=== PATIENT | female | born 1970 | race Caucasian/White ===

== ENCOUNTER 2016-07-16 08:58 | Emergency (ER) | payer BC ==
[2016-07-16 09:32] VITALS: BP 135/84
--- NOTE | 2016-07-16 10:10 | UC ---
Elbow Pain - HPI Summary HPI Summary: 1 WEEK OF BILATERAL ELBOW PAIN, RIGHT>LEFT. 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 PAIN IS KEEPING HER UP AT NIGHT. SHE CAN NOT GET COMFORTABLE. 1200MG IBUPROFEN AND 1000MF NAPROXEN NOT HELPING. ICE NOT HELPING. DENIES ANY TRAUMA OR INJURY. - History of Current Complaint Chief Complaint: UCLowerExtremity Stated Complaint: ELBOW PAIN Time Seen by Provider: 07/16/16 10:03 Hx Obtained From: Patient Hx Last Menstrual Period: 09/23/13 Onset/Duration: Atraumatic Severity Initially: Moderate Severity Currently: Moderate Pain Intensity: 10 - STATES 10/10 RIGHT ELBOW PAIN BUT SITTING IN EXAM ROOM IN NO ACUTE DISTRESS Pain Scale Used: 0-10 Numeric Location Of Pain: Is Discrete @ - BILATERAL ELBOWS R>L Character: Aching Aggravating Factor(s): Movement Alleviating Factor(s): Nothing Associated Signs And Symptoms: Negative: Swelling, Redness, Bruising, Fever, Weakness, Numbness/Tingling - Allergies/Home Medications Allergies/Adverse Reactions: Allergies Allergy/AdvReac Type Severity Reaction Status Date / Time ENVIRONMENTAL Allergy Unknown Uncoded 07/16/16 09:18 Reaction Details Home Medications: Home Medications Amphetamine-Dextroamphetamine [Adderall 10 mg-] 20 mg PO DAILY 07/16/16 [ History Confirmed 07/16/16] Ibuprofen [Ibuprofen 200 MG] 1,200 mg PO PRN 07/16/16 [History] Montelukast Sodium TAB* [Singulair 5 mg TAB*] 5 mg PO DAILY 07/16/16 [History Confirmed 07/16/16] Multiple Vitamins W/ Minerals [Multivitamin Adult] 1 tab PO DAILY 07/16/16 [ History Confirmed 07/16/16] Naproxen [Naproxen 500 MG TABS] 1,000 mg PO PRN 07/16/16 [History] PMH/Surg Hx/FS Hx/Imm Hx - Additional Past Medical History Additional PMH: Chronic Fatigue; Osteoarthritis; Fibromylagia; CHETAN Endocrine History Of: Reports: Thyroid Disease - Hypothyroidism, Hypothyroidism Denies: Diabetes Cardiovascular History Of: Reports: Deep Vein Thrombosis Denies: Hypertension, Pacemaker/ICD GI/ History Of: Reports: Gastroesophageal Reflux Denies: Renal Disease Psychological History Of: Reports: Anxiety, Depression Cancer History Of: Denies: Breast Cancer - Surgical History Surgical History: Yes Surgery Procedure, Year, and Place: 1995 TUBAL LIGATION, [facility]. 1994 RIGHT BREAST BIOPSY, [place], [place]. Tonsillectomy/Adenoidectomy age 5. CYST REMOVED FRON OUTER EAR AGE 5. Partial Hysterectomy - Family History Known Family History: Positive: Hypertension - Social History Alcohol Use: None Substance Use Type: None Smoking Status (MU): Heavy Every Day Tobacco Smoker Type: Cigarettes Amount Used/How Often: 1/2 ppd Length of Time of Smoking/Using Tobacco: 20 years Have You Smoked in the Last Year: Yes - Immunization History Most Recent Influenza Vaccination: Not Up to date Review of Systems Constitutional: Negative Skin: Negative Respiratory: Negative Cardiovascular: Negative Gastrointestinal: Negative Musculoskeletal: Arthralgia All Other Systems Reviewed And Are Negative: Yes Physical Exam Triage Information Reviewed: Yes Appearance: Well-Appearing, No Pain Distress, Well-Nourished Vital Signs: Initial Vital Signs Temp 99.2 F 07/16/16 09:26 Pulse 78 07/16/16 09:26 Resp 16 07/16/16 09:26 BP 135/84 07/16/16 09:26 Pulse Ox 98 07/16/16 09:26 Vital Signs Reviewed: Yes Eyes: Positive: Conjunctiva Clear ENT: Positive: Hearing grossly normal Neck: Positive: Supple Respiratory: Positive: No respiratory distress, No accessory muscle use Cardiovascular: Positive: Pulses Normal Abdomen Description: Positive: Soft Musculoskeletal: Positive: ROM Intact, No Edema, Other: - TTP BILATERAL LATERAL EPICONDYLES, RIGHT>LEFT Neurological: Positive: Alert Psychological: Positive: Age Appropriate Behavior Skin: Negative: rashes Elbow Pain Course/Dx - Course Course Of Treatment: SLING, NSAIDS, COUNTERFORCE BRACE, REST. FOLLOW-UP ORTHO IF NEEDED. - Differential Dx/Diagnosis Differential Diagnosis/HQI/PQRI: Bursitis, Fracture (Closed), Infection, Sprain , Strain Provider Diagnoses: LATERAL EPICONDYLITIS Discharge - Discharge Plan Condition: Stable Disposition: HOME Prescriptions: Hydrocodone-Acetaminophen [Lorcet 5-325 mg] 1 tab PO QID PRN #15 tab MDD 4 PRN Reason: Pain Patient Education Materials: Tennis Elbow Exercises (GEN), Tennis Elbow (ED) Forms: *Work Release Referrals: Moon Kiser MD [Primary Care Provider] - If Needed Mickey Vilchis MD [Medical Doctor] - If Needed Additional Instructions: THIS IS AN OVERUSE REPETITIVE MOTION INJURY AND CAN BE A CHRONIC CONDITION. TRY TO REST YOUR ARM MUCH POSSIBLE AND AVOID REPETITIVE MOTION AND ANY ACTIVITIES THAT CAUSE DISCOMFORT. TRY USING A COUNTERFORCE BRACE TO HELP WITH SYMPTOMS. YOU CAN GET THIS AT MOST PHARMACIES. THE SLING IS JUST FOR YOU TO USE NEEDED FOR COMFORT. TAKE IBUPROFEN OR NAPROXEN, DO NOT EXCEED DOSING STATED BELOW. IBUPROFEN MAX DOSE: 600MG (3 TABS) EVERY 6 HRS OR 800MG (4 TABS) EVERY 8 HRS OR NAPROXEN MAX DOSE: 440MG (2 TABS) EVERY 12 HRS (OTC) or 500MG EVERY 12 HOURS ( PRESCRIPTION) IF YOUR SYMPTOMS DO NOT IMPROVE WITH CONSERVATIVE MEASURES YOU MAY BENEFIT FROM AN INJECTION. CALL ORTHO IF NEEDED.
== END 2016-07-16 10:37 | disposition home or self-care (01) ==
LOC: UCEAST 08:58
DX: M77.12 Lateral epicondylitis, left elbow (principal); M77.11 Lateral epicondylitis, right elbow; F17.210 Nicotine dependence, cigarettes, uncomplicated
CPT/HCPCS: 99213; G0463

== ENCOUNTER → 2018-11-16 09:03 | Day surgery (SDC) | payer BC, OTHER ==
[~2018-11-16 09:03] MED LIST: Buffered Lidocaine 1% SYRIN* 1 ML/SYRINGE INTRADERM ONE; Bupivacaine 0.25% SDV* 30 ML ONE; HYDROcodone/ACETAMIN 5-325 MG* 1 TAB ONE; HYDROmorphone INJ* 0.5 MG/0.5 ML SYRINGE ONE; HYDROmorphone INJ1* 1 MG/ML SYRINGE IV PRN; Ibuprofen TAB* 600 MG ONE; Lactated Ringers 1000 ML Bag* 1,000 ML IV SCH; Lidocaine 2% PF * 5 ML VIAL ONE; Midazolam* 1 MG/ML 2 ML VIAL (2 MG) ONE; Naloxone* 0.4 MG/ML 1 ML VIAL IV PRN; Ondansetron INJ* 2 MG/ML VIAL ONE; Propofol* 10 MG/ML 20 ML BTL ONE; ceFAZolin 2 GM PREMIX in ORs 2 GM/50 ML BAG ONE; fentaNYL* 50 MCG/ML 2 ML VIAL (100 MCG VIAL) ONE
[2018-11-16 14:19] VITALS: BP 151/86
--- NOTE | 2018-11-16 17:01 | OP ---
DATE OF OPERATION: 11/16/18 - [facility] DATE OF : 70 SURGEON: Mickey Gamble MD RECORDS MANAGER: NABIL Bowie. An biology laboratory assistant was needed for the procedure to aid in positioning of the arm and retraction. ANESTHESIOLOGIST: Dr. Alarcon. ANESTHESIA: General. PRE-OP DIAGNOSIS: Left thumb stage 3 basal joint arthritis. POST-OP DIAGNOSIS: Left thumb stage 3 basal joint arthritis. OPERATIVE PROCEDURE: 1. Left thumb carpometacarpal arthroplasty with trapeziectomy. 2. Left distally based flexor carpi radialis tendon transfer for thumb suspension and tendon interposition. INDICATIONS: Kayli has stage 3 basal joint arthritis. It is very symptomatic. We talked about her treatment options. She wanted to proceed with surgery. She understands the risks associated with any procedure. ESTIMATED BLOOD LOSS: 5 mL. COMPLICATIONS: None. FINDINGS: See above and below. DESCRIPTION OF PROCEDURE: Kayli was seen in the preoperative holding area. The correct site, side, and procedure were identified. We came back to the operating room where the arm was prepped and draped in the usual fashion and a time-out was performed. I began by making a longitudinal incision over the dorsoradial thumb base. Dissection was carried down through the subcutaneous tissue and fascia. The radial artery was mobilized and retracted out of the way. Longitudinal capsulotomy and subperiosteal flap was raised to expose the entirety of the trapezium. Once the soft tissue was released from the margin of the trapezium, this was excised in piecemeal fashion. The FCR tendon was preserved in the base of the wound. Once the entirety of the trapezium was excised, I went ahead and made a bone tunnel from the dorsoradial aspect of the thumb metacarpal base exiting out the volar ulnar aspect of the articular surface near the base of the second metacarpal. This was done with sequentially larger drill bits. The wound was then irrigated out and we turned our attention to harvesting the tendon. I went ahead and made a transverse 1 cm incision just proximal to the wrist flexion crease of the FCR tendon. The tendon sheath was opened. The tendon was delivered up into the wound. I released the tendon along the sheath. I made a couple more 1 cm transverse incisions along the course of the tendon. Tendon was released at the musculotendinous junction and pulled down into the distal wound. The end of the tendon was cleaned of its muscular remnants and the tail of the tendon was secured with 3-0 Ethibond suture to prevent fraying. The tendon tail was passed down into the thumb base wound. The tendon was split and half the tendon was taken through a bone tunnel, the bone tunnel previously made. I had placed a mini Mitek suture anchor in the base of the second metacarpal. The suture from that was used to tie my tendon transfer down to the base of the second metacarpal right near the sling that held the thumb up in suspension. The remainder of the tendon tail was rolled up as a ball and it was docked as an interposition between the base of the metacarpal and the scaphoid. The scaphotrapezoid joint was inspected and looked healthy. At this point, the tendon transfer complete, everything was looking very good, the thumb was nicely suspended. We irrigated out the wound. The capsule was closed with 4-0 Vicryl suture. The skin was closed with 4-0 nylon suture. 0.25% plain Marcaine was infiltrated all around the operative area. The patient was woken up and taken to the recovery room in stable condition. [id number]/[facility] #: [id number] SAÚL
== END | disposition home or self-care (01) ==
LOC: OREAST 09:03
PROVIDERS: ATTEND Orthopaedic Surgery Hand Surgery
DX: M18.12 Unilateral primary osteoarthritis of first carpometacarpal joint, left hand (principal); F17.210 Nicotine dependence, cigarettes, uncomplicated; G47.33 Obstructive sleep apnea (adult) (pediatric); K21.9 Gastro-esophageal reflux disease without esophagitis; E03.9 Hypothyroidism, unspecified; F41.8 Other specified anxiety disorders; E27.40 Unspecified adrenocortical insufficiency; Z86.718 Personal history of other venous thrombosis and embolism
CPT/HCPCS: 88304; 88311; A9270-GY; C1713; J0690; J1170; J2250; J2405; J2704; J3010; J3490